=== PATIENT | male | born 1980 ===

== ENCOUNTER 2024-03-18 14:01 | Emergency (ER) | payer SELFPAY ==
[2024-03-18 14:14] VITALS: BP 125/73; PULSE 95; O2SAT 97
== END 2024-03-18 14:56 ==
LOC: ER 14:01
DX: S00.81XA Abrasion of other part of head, initial encounter (principal); X58.XXXA Exposure to other specified factors, initial encounter; Y93.89 Activity, other specified; Y92.89 Other specified places as the place of occurrence of the external cause; Y99.8 Other external cause status
CPT/HCPCS: 99283